=== PATIENT | female | born 1965 | race Caucasian/White ===

== ENCOUNTER 2018-03-31 16:39 | Emergency (ER) | payer OTHER ==
[~2018-03-31] VITALS: Ht 165.1 cm; Wt 65.8 kg
[2018-03-31 16:48] VITALS: BP 103/78
--- NOTE | 2018-03-31 17:01 | NUR ---
PATIENT PRESENTS TO ED WITH BILATERAL SHOULDER PAIN X 3 DAYS. +CMS. PT REPORTS LIMITED ROM IN LEFT SHOULDER. NO SWELLING NOTED. DENIES N/V/D; SKIN IS PINK/WARM/DRY; AAOX4 WITH EVEN AND STEADY GAIT; LUNGS CLEAR BL; HR EVEN AND REGULAR; PT DENIES ANY FEVER, CP, SOB, OR COUGH AT THIS TIME; PATIENT STATES PAIN OF 10/10 AT THIS TIME; VSS; PATIENT POSITIONED FOR COMFORT; HOB ELEVATED; BEDRAILS UP X2; BED DOWN. ER MD MADE AWARE OF PT STATUS.
--- NOTE | 2018-03-31 17:20 | NUR ---
PROVIDER AT BEDSIDE WITH PATIENT AT THIS TIME.
[2018-03-31] MEDS ORDERED: HYDROcodone/APAP 5/325 MG 1 TAB TAB PO ONE (17:30)
[2018-03-31] MEDS ORDERED: KETOROLAC 30 MG/ML VIAL IM ONE (17:30)
--- NOTE | 2018-03-31 18:26 | NUR ---
PT RESTING COMFORTABLY. PT REPORTS PAIN AT 5/10 AT THIS TIME POST MEDICATION ADMINISTRATION. WILL CONTINUE TO MONITOR. VSS.
--- NOTE | 2018-03-31 19:09 | NUR ---
Pt report given to AXEL CAMPBELL . Transfer of care at this time.
[2018-03-31 19:25] VITALS: BP 108/81
--- NOTE | 2018-03-31 19:25 | NUR ---
Patient discharged with v/s stable. Written and verbal after care instructions given and explained. Patient alert, oriented and verbalized understanding of instructions. Ambulatory with steady gait. All questions addressed prior to discharge. ID band removed. Patient advised to follow up with PMD. Rx of NORCO AND IBUPROFEN given. Patient educated on indication of medication including possible reaction and side effects. Opportunity to ask questions provided and answered.
== END 2018-03-31 19:25 | disposition home or self-care (01) ==
LOC: MED 16:39
DX: M75.31 Calcific tendinitis of right shoulder (principal); M19.011 Primary osteoarthritis, right shoulder
CPT/HCPCS: 73030; 96372; 99284; J1885

== ENCOUNTER 2018-11-26 15:55 | Emergency (ER) | payer OTHER ==
[~2018-11-26] VITALS: Ht 157.5 cm; Wt 62.1 kg
[2018-11-26 16:12] VITALS: BP 121/77
--- NOTE | 2018-11-26 17:08 | NUR ---
BIB . AAO X4 C/O GENERALIZED ABDOMINAL PAIN 02/20 RADIATING TO R LOWER BACK 04/22 X 3 DAYS. DENIES TRAUMA OR INJURY, DENIES N/V/D, FEVER, SOB, DYSURIA. LAST BM TODAY IN THE AM. LAST FOOD INTAKE TODAY AT LUNCH TIME. ABDOMEN NON TENDER TO TOUCH. BOWEL SOUNDS TO ALL QUADRANTS UPON AUSCULTATION. HOB UP. BED SIDE RAILS UP X1. ON LOW BED POSITION, LOCKED. ER MADE AWARE OF PT STATUS.
--- NOTE | 2018-11-26 17:08 | NUR ---
PT AMBULATED TO ER BED 04
[2018-11-26 17:59] LABS: BASOPHILS % (AUTO) 0.4 % (0.0-2.0); EOSINOPHILS # (AUTO) 0.1 K/uL (0-0.4); EOSINOPHILS % (AUTO) 0.9 % (0.0-4.0); HEMATOCRIT 39.2 % (36-48); LYMPHOCYTES # (AUTO) 3.1 K/uL (2.5-16.5); LYMPHOCYTES % (AUTO) 49.2 % (20.5-51.1); MEAN CORPUSCULAR HEMOGLOBIN 27 pg (27-31); MEAN CORPUSCULAR HGB CONC 33 g/dL (33-37); MEAN CORPUSCULAR VOLUME 80.5 fL (80-94); MONOCYTES # (AUTO) 0.8 K/uL (0.8-1.0); MONOCYTES % (AUTO) 11.8 % (1.7-9.3); NEUTROPHILS # (AUTO) 2.4 K/uL (1.8-7.7); NEUTROPHILS % (AUTO) 37.7 % (42.2-75.2); PLATELET COUNT (AUTO) 297 K/uL (140-450); RED BLOOD CELL COUNT(AUTO) 4.87 MIL/uL (4.20-5.40); RED CELL DISTRIBUTION WIDTH 13.5 % (11.6-13.7); WHITE BLOOD COUNT (AUTO) 6.4 K/uL (4.8-10.8)
[2018-11-26 18:04] LABS: APPEARANCE,URINE CLEAR (CLEAR); BILIRUBIN,URINE NEGATIVE (NEGATIVE); BLOOD, URINE NEGATIVE (NEGATIVE); COLOR,URINE YELLOW (YELLOW); LEUKOCYTE ESTERASE ,URINE NEGATIVE (NEGATIVE); NITRITE, URINE NEGATIVE (NEGATIVE); PH,URINE 7.5 (5.0-9.0); UGLUCOSE NEGATIVE (NEGATIVE)
[2018-11-26] MEDS ORDERED: MORPHINE SULFATE 4 MG/ML SYR IVP ONE (18:10)
[2018-11-26 18:22] LABS: ALBUMIN 3.2 g/dL (3.4-5.0); ANION GAP 8.4 (8-16); CARBON DIOXIDE 29.4 mmol/L (21-32); CREATININE 0.8 mg/dL (0.6-1.3); POTASSIUM 3.8 mmol/L (3.5-5.1); TOTAL BILIRUBIN 0.1 mg/dL (0.0-1.0)
--- NOTE | 2018-11-26 19:05 | NUR ---
Edwin corbett in [facility] - 11/26/18 at 1925 by MEDELVER INFORMED CONSENT OBTAINED. PT AND PT VERBALIZED UNDERSTANDING.
--- NOTE | 2018-11-26 19:05 | NUR ---
INFORMED CONSENT OBTAINED FOR CT WITH CONTRAST FOR ABDOMEN AND PELVIS. PT AND PT VERBALIZED UNDERSTANDING.
--- NOTE | 2018-11-26 19:13 | NUR ---
URINE ORDERED, CALLED LAB TO PERFORM TEST
--- NOTE | 2018-11-26 19:24 | NUR ---
PT TAKEN TO CT AT THIS TIME
[2018-11-26] MEDS ORDERED: KETOROLAC 30 MG/ML VIAL IVP ONE (19:50)
--- NOTE | 2018-11-26 20:26 | NUR ---
DR CHAUDHRY AT BEDSIDE FOR PT RE EVALUATION
[2018-11-26 20:35] VITALS: BP 124/78
--- NOTE | 2018-11-26 20:35 | NUR ---
Patient discharged with v/s stable. Written and verbal after care instructions given and explained. Patient alert, oriented and verbalized understanding of instructions. Ambulatory with steady gait. All questions addressed prior to discharge. ID band removed. Patient advised to follow up with PMD. Rx of [place] 5 mg -325 mg, Naprosyn, Flagyl given. Patient educated on indication of medication including possible reaction and side effects. Opportunity to ask questions provided and answered.
== END 2018-11-26 20:35 | disposition home or self-care (01) ==
LOC: MED 15:55
DX: N83.202 Unspecified ovarian cyst, left side (principal); N83.201 Unspecified ovarian cyst, right side; R19.7 Diarrhea, unspecified
CPT/HCPCS: 36415; 74177; 80053; 81003; 81025; 83690; 85025; 96374; 96375; 99284; J1885; J2270; Q9967